=== PATIENT | male | born 1985 | race Caucasian/White ===

== ENCOUNTER 2024-04-21 10:23 | Emergency (ER) | payer SELFPAY ==
--- NOTE | 2024-04-21 10:29 | CTR_ITS ---
PROCEDURE INFORMATION: Exam: CT Abdomen And Pelvis Without Contrast Exam date and time: 04/21/2024 11:01 AM Age: 38 years old Clinical indication: Abdominal pain; Flank; Left; Additional info: Flank pain TECHNIQUE: Imaging protocol: Computed tomography of the abdomen and pelvis without contrast. Radiation optimization: All CT scans at this facility use at least one of these dose optimization techniques: automated exposure control; mA and/or kV adjustment per patient size (includes targeted exams where dose is matched to clinical indication); or iterative reconstruction. COMPARISON: CT Abdomen/Pelvis Renal [id number] 10/16/2016 11:52 PM RADIATION DOSE METRICS: Total DLP (mGy-cm): 637.08 FINDINGS: Liver: Normal. No mass. Gallbladder and biliary ducts: Normal. No calcified stones. No ductal dilation. Pancreas: Normal. No ductal dilation. Spleen: Normal. No splenomegaly. Adrenal glands: Normal. No mass. Kidneys and ureters: Chronic right renal atrophy. Left inferior renal postsurgical change. Mild left pelvocaliectasis with suggested urothelial thickening appears similar to September 2016. Mildly increased size of right renal cyst with minimal dependent layering milk of calcium. Punctate bilateral renal calculi. Otherwise unremarkable. Stomach and bowel: No bowel dilatation to suggest obstruction. Appendix: No evidence of appendicitis. Intraperitoneal space: Unremarkable. No free air. No significant fluid collection. Vasculature: Unremarkable. No abdominal aortic aneurysm. Lymph nodes: Unremarkable. No enlarged lymph nodes. Urinary bladder: Unremarkable as visualized. Reproductive: Unremarkable as visualized. Bones/joints: No acute fracture. Mild degenerative change along the spine and left hip. Soft tissues: Tiny fat containing umbilical hernia. CT/CT abdomen pelvis wo con [id number] IMPRESSION: 1. Mild left renal pelvocaliectasis with suggested urothelial thickening. No obstructive calcified urolith. Consideration for recently passed stone, pyelitis/pyelonephritis, and/or chronically patulous collecting system. 2. Bilateral nonobstructive nephrolithiasis. 3. Chronic right renal atrophy.
[2024-04-21 10:30] VITALS: BP 174/92; PULSE 90; RESP 18; TEMP 36.7; O2SAT 99
[2024-04-21 10:49] LABS: Bilirubin Urine Negative (Negative); Blood Urine 3+ (Negative); Glucose Urine UA Negative (Normal); Ketones Urine Trace (Negative); Leukocyte Esterase Urine Trace (Negative); Nitrate Urine Negative (Negative); Protein Urine 1+ (Negative); Specific Gravity, Urine 1.024 (1.005-1.030); Urine Appearance Cloudy (CLEAR); Urine Color Dark Yellow (Yellow); pH Urine 6.5 (5-7)
[2024-04-21 10:53] LABS: Basophils # 0.1 10^3/uL (0.0-0.1); Basophils % 0.7 %; Eosinophils # 0.1 10^3/uL (0.0-0.8); Eosinophils % 0.7 %; Hematocrit 38.9 % (37-53); Lymphocytes # 1.2 10^3/uL (0.8-4.8); Lymphocytes % 13.9 %; Mean Corpuscular HGB Conc 33.4 g/dL (30-55); Mean Corpuscular Volume 95.8 fl (82-101); Mean Platelet Volume 9.7 fL (7.4-10.4); Monocytes # 0.6 10^3/uL (0.2-0.9); Monocytes % 6.4 %; Neutrophils # 6.92 10^3/uL (1.8-7.7); Nucleated Red Blood Cells % 0 %; Platelet Count 248 10^3/cmm (157-399); Red Blood Count 4.06 10^6/uL (3.85-5.65); Red Cell Distribution Width 13.1 % (12.1-15.1); White Blood Count 8.87 10^3/uL (3.29-11.43)
[2024-04-21 10:54] LABS: Bacteria Urine None Seen /hpf; Hyaline Casts Urine 0.81 /lpf; RBC Urine >100 /hpf (0-2); Squamous Epithelial Cell Urine 0-5 /hpf (0-5)
[2024-04-21 11:00] LABS: Add Urine Culture? Yes
[2024-04-21 11:10] LABS: Alanine Aminotransferase 52 U/L (0-41); Albumin Level 4.5 g/dL (3.5-5.2); Alkaline Phosphatase 112 U/L (40-130); Anion Gap 16.8 (5-19); Aspartate Amino Transferase 39 U/L (0-40); Blood Urea Nitrogen 16 mg/dL (6-20); Calcium 9.4 mg/dL (8.5-10.5); Carbon Dioxide 22 mmol/L (22-29); Chloride 105 mmol/L (98-107); Creatinine Clr Calc Pharmacy 96.4536; Globulin 3.3 g/dL (1.3-4.6); Glomerular Filtration Rate 61.8 mL/min (90-130); Glucose 113 mg/dL (65-115); Osmolality Calculated 292 mOsm/kg (285-295); Potassium 3.8 mmol/L (3.5-5.1); Sodium 140 mmol/L (136-145); Total Bilirubin 0.5 mg/dL (0.15-1.2); Total Protein 7.8 g/dL (6.6-8.7)
--- NOTE | 2024-04-21 11:57 | ED_ITS ---
HPI - Male Genitourinary 2 General: Chief complaint: Urogenital-Male Stated complaint: kidney stone pain, nausea Time Seen by Provider: 04/21/24 11:47 History of Present Illness: 38-year-old man who presents emergency r oom with flank pain. Started about 3 hours ago. Left flank pain going into his left groin. Some nausea but no vomiting. No fever. No altered mental status. He reports history of kidney stones. Related Data Previous Rx's Medication Instructions Recorded cefdinir 300 mg capsule 300 mg PO BID 5 days #10 caps 04/21/24 hydrocodone 5 mg-acetaminophen 325 1 tab PO Q8H PRN pain #8 tabs 04/21/24 mg tablet ondansetron 8 mg disintegrating 8 mg PO Q6H #14 tabs 04/21/24 tablet polyethylene glycol 3350 17 17 g PO DAILY #510 grams 04/21/24 gram/dose oral powder (Miralax) Allergies Allergy/AdvReac Type Severity Reaction Status Date / Time ketorolac [From Toradol] Allergy Unknown Verified 04/21/24 10:33 morphine Allergy ALGY-Hives Verified 04/21/24 10:33 Penicillins Allergy Unknown Verified 04/21/24 10:33 Sulfa (Sulfonamide Allergy ALGY-Hives Verified 04/21/24 10:33 Antibiotics) Review of Systems 2 Narrative: Constitutional symptoms: Negative except as documented in HPI. Skin symptoms: Negative except as documented in HPI. Eye symptoms: Negative except as documented in HPI. ENMT symptoms: Negative except as documented in HPI. Respiratory symptoms: Negative except as documented in HPI. Cardiovascular symptoms: Negative except as documented in HPI. Gastrointestinal symptoms: Negative except as documented in HPI. Genitourinary symptoms: Negative except as documented in HPI. Musculoskeletal symptoms: Negative except as documented in HPI. Neurologic symptoms: Negative except as documented in HPI. Psychiatric symptoms: Negative except as documented in HPI. Endocrine symptoms: Negative except as documented in HPI. Physical Exam 2 Narrative: EXAM NARRATIVE: General: Alert, no acute distress. Skin: Warm, dry. Head: Normocephalic, atraumatic. Neck: Supple, trachea midline. Eye: Extraocular movements are intact. Ears, nose, mouth and throat: Dry oral mucosa Cardiovascular: Regular, Normal peripheral perfusion. Respiratory: Lungs are clear to auscultation, respirations are non-labored, breath sounds are equal, Symmetrical chest wall expansion. Gastrointestinal: Soft, Nontender, Non distended Musculoskeletal: Normal ROM, no deformity. Neurological: Alert and oriented, No focal neurological deficit observed. Psychiatric: Cooperative, appropriate mood & affect. Course 2 Vital Signs: Vital signs: Vital Signs Temperature 98.0 F 04/21/24 10:30 Pulse Rate 90 04/21/24 10:30 Respiratory Rate 18 04/21/24 10:30 Blood Pressure 174/92 04/21/24 10:30 Pulse Oximetry 99 04/21/24 10:30 Oxygen Delivery Me thod Room Air 04/21/24 10:30 MDM - Male Medical Decision Making Medical decision making: Differential diagnosis including but not limited to and based on the above HPI, review of systems and physical exam: Ureterolithiasis. Urinary tract infection. Appendicitis. Cholecystis. Musculoskeletal / back pain. Pyelonephritis Orders placed to evaluate differential diagnosis based on the above differential, HPI and physical exam Lab Review: Laboratory results were reviewed and interpreted by myself the emergency room physician. No leukocytosis. No anemia. Mild elevation in BUN and creatinine at 16 and 1.3. I have no comparisons as to what his baseline is. Oniel hematuria. Trace leukocyte esterase and 6-10 whites ongoing to treat him as if he has an infection. CT of the abdomen pelvis without contrast: Mild left renal pelvic Ondina ectasis with suggesting your radial oral thickening. No obstructive stone. Likely recently passed stone. Bilateral nonobstructive kidney stones. Chronic right renal atrophy. This was reviewed and interpreted by myself the emergency room physician. I also reviewed the radiology report. I reviewed the patient's medical record. Assessment and plan: Passed kidney stone. Nonobstructive kidney stones. Urinary tract infection ?Dilaudid, Zofran, fluids and IV Rocephin. - Discharged home - Discussed findings and plan with patient. Answered any questions. - All laboratory values were reviewed and interpreted personally by myself, the ER physician - All imaging was reviewed and interpreted personally by myself, the ER physician. - Evaluation and treatment of this problem were appropriate in the emergency setting Lab Data 04/21/24 10:48 04/21/24 10:48 Radiology Impressions Abdomen/Pelvis CT 04/21/24 10:29 IMPRESSION: 1. Mild left renal pelvocaliectasis with suggested urothelial thickening. No obstructive calcified urolith. Consideration for recently passed stone, pyelitis/pyelonephritis, and/or chronically patulous collecting system. 2. Bilateral nonobstructive nephrolithiasis. 3. Chronic right renal atrophy. Laboratory Results WBC 8.87 10^3/uL (3.29-11.43) 04/21/24 10:48 RBC 4.06 10^6/uL (3.85-5.65) 04/21/24 10:48 Hgb 13.00 g/dL (11.27-16.99) 04/21/24 10:48 Hct 38.9 % (37-53) 04/21/24 10:48 MCV 95.8 fl (82-101) 04/21/24 10:48 MCH 32.0 pg (27-33) 04/21/24 10:48 MCHC 33.4 g/dL (30-55) 04/21/24 10:48 RDW 13.1 % (12.1-15.1) 04/21/24 10:48 Plt Count 248 10^3/cmm (157-399) 04/21/24 10:48 MPV 9.7 fL (7.4-10.4) 04/21/24 10:48 Neut % (Auto) 78.0 % 04/21/24 10:48 Lymph % (Auto) 13.9 % 04/21/24 10:48 [place] % (Auto) 6.4 % 04/21/24 10:48 Eos % (Auto) 0.7 % 04/21/24 10:48 Baso % (Auto) 0.7 % 04/21/24 10:48 Neut # (Auto) 6.92 10^3/uL (1.8-7.7) 04/21/24 10:48 Lymph # (Auto) 1.2 10^3/uL (0.8-4.8) 04/21/24 10:48 Norman # (Auto) 0.6 10^3/uL (0.2-0.9) 04/21/24 10:48 Eos # (Auto) 0.1 10^3/uL (0.0-0.8) 04/21/24 10:48 Baso # (Auto) 0.1 10^3/uL (0.0-0.1) 04/21/24 10:48 Nucleated RBC % (auto) 0 % 04/21/24 10:48 Nucleated RBCs # 0.0 /100WBC 04/21/24 10:48 Sodium 140 mmol/L (136-145) 04/21/24 10:48 Potassium 3.8 mmol/L (3.5-5.1) 04/21/24 10:48 Chloride 105 mmol/L (98-107) 04/21/24 10:48 Carbon Dioxide 22 mmol/L (22-29) 04/21/24 10:48 Anion Gap 16.8 (5-19) 04/21/24 10:48 BUN 16 mg/dL (6-20) 04/21/24 10:48 Creatinine 1.3 mg/dL (0.7-1.2) H 04/21/24 10:48 GFR Calculation 61.8 mL/min (90-130) L 04/21/24 10:48 Glucose 113 mg/dL (65-115) 04/21/24 10:48 Calculated Osmolality 292 mOsm/kg (285-295) 04/21/24 10:48 Calcium 9.4 mg/dL (8.5-10.5) 04/21/24 10:48 Total Bilirubin 0.5 mg/dL (0.15-1.2) 04/21/24 10:48 AST 39 U/L (0-40) 04/21/24 10:48 ALT 52 U/L (0-41) H 04/21/24 10:48 Alkaline Phosphatase 112 U/L (40-130) 04/21/24 10:48 C-Reactive Protein 3.0 mg/L (0.0-4.9) 04/21/24 10:48 Total Protein 7.8 g/dL (6.6-8.7) 04/21/24 10:48 Albumin 4.5 g/dL (3.5-5.2) 04/21/24 10:48 Globulin 3.3 g/dL (1.3-4.6) 04/21/24 10:48 Urine Color Dark yellow (Yellow) A 04/21/24 10:35 Urine Appearance Cloudy (CLEAR) A 04/21/24 10:35 Urine pH 6.5 (5-7) 04/21/24 10:35 Ur Specific [place] 1.024 (1.005-1.030) 04/21/24 10:35 Urine Protein 1+ (Negative) A 04/21/24 10:35 Urine Glucose (UA) Negative (Normal) 04/21/24 10:35 Urine Ketones Trace (Negative) 04/21/24 10:35 Urine Blood 3+ (Negative) A 04/21/24 10:35 Urine Nitrate Negative (Negative) 04/21/24 10:35 Urine Bilirubin Negative (Negative) 04/21/24 10:35 Urine Urobilinogen 1.0 mg/dL (Negative) 04/21/24 10:35 Ur Leukocyte Esterase Trace (Negative) A 04/21/24 10:35 Urine RBC >100 /hpf (0-2) H 04/21/24 10:35 Urine WBC 6-10 /hpf (0-5) 04/21/24 10:35 Ur Squamous Epith Cells 0-5 /hpf (0-5) 04/21/24 10:35 Amorphous Sediment Not Reportable 04/21/24 10:35 Urine Bacteria None seen /hpf (NONE) 04/21/24 10:35 Hyaline Casts 0.81 /lpf 04/21/24 10:35 All radiology interpretation(s) finalized by discharge Discharge Plan Discharge Patient Disposition: Home Clinical Impression: Ureterolithiasis, Urinary tract infection Condition: Stable Prescriptions: New hydrocodone-acetaminophen 5-325 mg tablet 1 tab PO Q8H PRN (Reason: pain) Qty: 8 0RF Rx Instructions: Take 1/2 to 1 tab every 8 hours as needed for pain ondansetron 8 mg tablet,disintegrating 8 mg PO Q6H Qty: 14 0RF Rx Instructions: Take 1/2-1 tab every 6 hours as needed for nausea and vomiting Miralax 17 gram/dose powder 17 g PO DAILY Qty: 510 0RF Rx Instructions: Take 1 scoop daily while taking pain medications. cefdinir 300 mg capsule 300 mg PO BID 5 Days Qty: 10 0RF Discharge Orders: Discharge ED (Routine); Ordered 04/21/24 Ordered By: Nadiya Bass Discharge Diet: Usual diet Discharge Activity: Resume usual activity Patient Instructions: Kidney Stones (ED) Activity Restrictions/Additional Instructions: Call for appointment with urology. If fever (temp >100.4) develops return to the emergency room immediately, as this is an emergency. Take nausea medication prior to taking pain medications. Thank you for choosing [facility] for your healthcare needs today. Please realize this is an emergency room and that we are providing you with a medical screening exam and this may not be complete and all inclusive of all the testing and or work up that you may need to determine your ailment or severity of your illness. You have been screened and evaluated and felt safe for discharge. Health conditions do change or evolve sometimes and as such it is important that you follow up with your Primary Doctor to be re checked, 3-5 days is a general good time frame for follow up. You are always welcome to return to the ED for re assessment if your symptoms are worsening or you have new concerns Coding Level of Care Code ED Wine Merchant for Francisco Romero
[2024-04-21 12:15] VITALS: O2SAT 100
[2024-04-21] MEDS: ondansetron 2 mg/ML SDV 2 mL 4 MG IVP (12:15)
[2024-04-21] MEDS: sodium chloride 0.9% 1,000 ML 999 ML IV (12:15)
[2024-04-21] MEDS: cefTRIAXone 1,000 mg SDV 1000 MG IVP (12:15)
[2024-04-21] MEDS: HYDROmorphone 1 mg/mL INJ 1 mL IVP (12:15)
[2024-04-21 12:32] VITALS: BP 165/114; PULSE 62; RESP 16; O2SAT 100
[2024-04-21] MEDS: HYDROcodone-acetaminophen 5-325 mg Tablet 1 TAB PO (12:52)
[2024-04-21 13:00] VITALS: BP 177/96; PULSE 66; RESP 16; O2SAT 98
== END 2024-04-21 13:17 | disposition home or self-care (01) ==
PROVIDERS: Emergency Provider Emergency Medicine
DX: N39.0 Urinary tract infection, site not specified (principal); N20.1 Calculus of ureter
CPT/HCPCS: 36415; 74176; 80053; 81001; 85025; 86140; 87086; 96361; 96374; 96375; 99285; J0696; J1170; J2405; J7030

== ENCOUNTER 2024-04-23 12:43 | Emergency (ER) | payer SELFPAY ==
[2024-04-23 12:55] VITALS: BP 186/102; PULSE 97; RESP 18; TEMP 36.7; O2SAT 100; BMI 28.2
[2024-04-23 14:06] LABS: Charge for UA Resulting for Rev
[2024-04-23 14:09] LABS: Bilirubin Urine Negative (Negative); Blood Urine 3+ (Negative); Glucose Urine UA Negative (Normal); Ketones Urine Negative (Negative); Leukocyte Esterase Urine Trace (Negative); Nitrate Urine Negative (Negative); Protein Urine 1+ (Negative); Specific Gravity, Urine 1.025 (1.005-1.030); Urine Appearance Cloudy (CLEAR); pH Urine 5.5 (5-7)
[2024-04-23 14:15] LABS: Basophils # 0.1 10^3/uL (0.0-0.1); Basophils % 0.9 %; Eosinophils # 0.1 10^3/uL (0.0-0.8); Hematocrit 35.3 % (37-53); Lymphocytes # 1.4 10^3/uL (0.8-4.8); Lymphocytes % 20.5 %; Mean Corpuscular HGB Conc 32.9 g/dL (30-55); Mean Corpuscular Hemoglobin 32.3 pg (27-33); Mean Corpuscular Volume 98.3 fl (82-101); Monocytes # 0.5 10^3/uL (0.2-0.9); Monocytes % 6.6 %; Neutrophils # 4.84 10^3/uL (1.8-7.7); Neutrophils % 69.7 %; Nucleated Red Blood Cells % 0 %; Platelet Count 222 10^3/cmm (157-399); Red Blood Count 3.59 10^6/uL (3.85-5.65); Red Cell Distribution Width 12.8 % (12.1-15.1); White Blood Count 6.94 10^3/uL (3.29-11.43)
[2024-04-23 14:43] LABS: UA Manual Slide Review YES; UA Slide Review UA Slide Review Perf; Urine Color Orange (Yellow)
[2024-04-23 14:44] LABS: Bacteria Urine 1+ /hpf; Calcium Oxalate Crystals Urine 0-4 /hpf; Fine Granular Casts Urine 0-4 /lpf; RBC Urine >100 /hpf (0-2); Squamous Epithelial Cell Urine 0-4 /hpf (0-5)
[2024-04-23 14:45] LABS: Alanine Aminotransferase 39 U/L (0-41); Albumin Level 4.1 g/dL (3.5-5.2); Alkaline Phosphatase 106 U/L (40-130); Blood Urea Nitrogen 16 mg/dL (6-20); Calcium 9.1 mg/dL (8.5-10.5); Carbon Dioxide 25 mmol/L (22-29); Chloride 106 mmol/L (98-107); Creatinine Clr Calc Pharmacy 114.9252; Globulin 2.5 g/dL (1.3-4.6); Glomerular Filtration Rate 74.9 mL/min (90-130); Glucose 86 mg/dL (65-115); Osmolality Calculated 292 mOsm/kg (285-295); Sodium 141 mmol/L (136-145); Total Bilirubin 0.2 mg/dL (0.15-1.2); Total Protein 6.6 g/dL (6.6-8.7)
[2024-04-23 14:46] LABS: Anion Gap 14.2 (5-19); Aspartate Amino Transferase 33 U/L (0-40); Potassium 4.2 mmol/L (3.5-5.1)
[2024-04-23 14:58] VITALS: BP 162/100; PULSE 80; O2SAT 93
--- NOTE | 2024-04-23 15:12 | ED_ITS ---
HPI - Male Genitourinary 2 General: Chief complaint: Abdominal Pain Stated complaint: abdominal pain/ nausea Time Seen by Provider: 04/23/24 14:51 Source: patient Mode of arrival: ambulatory Limitations: no limitations History of Present Illness: Patient is a nice 38-year-old male with an extensive urology history including multiple kidney and ureter stones requiring multiple surgeries, nephrostomy tubes, left partial nephrectomy, etc. His urologist is back home in [place], [place]. 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 Reports two days ago began having severe pain and was seen here in our emergency department. CT scan did not show any obstructive uropathy-findings consistent with possibly recently passed stone. Gross hematuria noted at that time. Patient states he was doing well following his discharge until few hours prior to arrival today when he began having severe pain again. Patient states he will be traveling back home on and plans to follow-up with his urologist. Onset (ago): hour(s) Duration: constant Location: left flank and abdomen Severity: severe Quality: sharp Relieving factors: none Exacerbating factors: none Associated symptoms: Reports nausea; Deny dysuria or vomiting Related Data Previous Rx's Medication Instructions Recorded cefdinir 300 mg capsule 300 mg PO BID 5 days #10 caps 04/21/24 ondansetron 8 mg disintegrating 8 mg PO Q6H #14 tabs 04/21/24 tablet polyethylene glycol 3350 17 17 g PO DAILY #510 grams 04/21/24 gram/dose oral powder (Miralax) hydrocodone 5 mg-acetaminophen 325 1 tab PO Q8H PRN pain #10 tabs 04/23/24 mg tablet Allergies Allergy/AdvReac Type Severity Reaction Status Date / Time ketorolac [From Toradol] Allergy Unknown Verified 04/23/24 12:58 morphine Allergy ALGY-Hives Verified 04/23/24 12:58 Penicillins Allergy Unknown Verified 04/23/24 12:58 Sulfa (Sulfonamide Allergy ALGY-Hives Verified 04/23/24 12:58 Antibiotics) Review of Systems 2 Const: Denies: fever(s), chills, body aches, fatigue or malaise Card: Denies: chest pain Resp: Denies: dyspnea GI: Reports: abdominal pain and nausea; Denies: vomiting or diarrhea : Reports: flank pain, urinary urgency and urinary hesitancy; Denies: difficulty urinating, dysuria or urinary frequency Musc: Denies: neck pain, extremity pain, extremity swelling, joint pain or joint swelling Skin/Breast: Denies: rash Neuro: Denies: headache(s), numbness in extremities, weakness in extremities, sensory changes or dizziness Physical Exam 2 Const: COMMON NORMALS: average body habitus, patient oriented x3, no limitations, healthy appearing, alert and well nourished GENERAL APPEARANCE: cooperative and in distress (appears uncomfortable secondary to pain) O RIENTATION/CONSCIOUSNESS: Yes awake, Yes oriented to person, Yes oriented to place and Yes oriented to time Resp: COMMON NORMALS: normal respiratory effort and clear to auscultation bilaterally AUSCULTATION: clear to auscultation bilaterally Cardio: COMMON NORMALS: regular rate and regular rhythm RATE: regular rate RHYTHM: regular rhythm GI: COMMON NORMALS: Normal to inspection, nondistended, normoactive bowel sounds present, Soft to palpation, No hepatosplenomegaly present and no masses INSPECTION: Yes normal to inspection AUSCULTATION: Yes normoactive bowel sounds PALPATION: Yes Soft to palpation, Yes Tenderness to palpation present (GI) (L lateral abdomen, LLQ), No Guarding due to palpation present (GI), No Rigid due to palpation and Yes No hepatosplenomegaly present : COMMON NORMALS: Yes no CVA tenderness BLADDER/KIDNEY EXAM: Yes no CVA tenderness Back/Pelvis: COMMON NORMALS: no CVA tenderness and thoracic and lumbar spine normal to inspection Extremity: GENERAL: Yes normal exam except as noted Neuro: COMMON NORMALS: patient oriented x3, moves all extremities, no focal motor deficits, no sensory deficits noted and gait normal S ENSORIUM/ORIENTATION: Yes alert, Yes oriented to person, Yes oriented to place and Yes oriented to time Skin: COMMON NORMALS: no rashes or lesions noted GENERAL SKIN EXAM: no rashes or lesions noted Course 2 Vital Signs: Vital signs: Vital Signs Temperature 98.0 F 04/23/24 12:55 Pulse Rate 78 04/23/24 16:00 Respiratory Rate 19 H 04/23/24 16:04 Blood Pressure 168/67 04/23/24 16:00 Pulse Oximetry 97 04/23/24 16:04 Oxygen Delivery Me thod Room Air 04/23/24 16:00 MDM - Male Medical Decision Making Pain was adequately controlled here. Vital signs are stable. He has a normal white count. Creatinine that was slightly elevated on last visit is now normal. UA showing gross hematuria. He was placed on cefdinir at last visit. CT scan showing no significant changes from previous. Will continue plan for patient to follow-up with his urologist when he returns home on . Medical Records I reviewed the patient's medical records. Lab Data I reviewed the patient's lab results. 04/23/24 14:09 04/23/24 14:09 Radiology Impressions Abdomen/Pelvis CT 04/23/24 15:23 IMPRESSION: 1. Mild LEFT pelvocaliectasis with mild uroepithelial irregularity of the distal LEFT ureter. No stones are identified. Correlate for possible urinary tract infection or recently passed stone. Very similar to the study of 04/21/2024. 2. Chronic cortical thinning and atrophy RIGHT kidney with complex cysts. The cyst contains layering calcification. 3. Postsurgical changes lower pole LEFT kidney. Laboratory Results WBC 6.94 10^3/uL (3.29-11.43) 04/23/24 14:09 RBC 3.59 10^6/uL (3.85-5.65) L 04/23/24 14:09 Hgb 11.60 g/dL (11.27-16.99) 04/23/24 14:09 Hct 35.3 % (37-53) L 04/23/24 14:09 MCV 98.3 fl (82-101) 04/23/24 14:09 MCH 32.3 pg (27-33) 04/23/24 14:09 MCHC 32.9 g/dL (30-55) 04/23/24 14:09 RDW 12.8 % (12.1-15.1) 04/23/24 14:09 Plt Count 222 10^3/cmm (157-399) 04/23/24 14:09 MPV 10.0 fL (7.4-10.4) 04/23/24 14:09 Neut % (Auto) 69.7 % 04/23/24 14:09 Lymph % (Auto) 20.5 % 04/23/24 14:09 [place] % (Auto) 6.6 % 04/23/24 14:09 Eos % (Auto) 2.0 % 04/23/24 14:09 Baso % (Auto) 0.9 % 04/23/24 14:09 Neut # (Auto) 4.84 10^3/uL (1.8-7.7) 04/23/24 14:09 Lymph # (Auto) 1.4 10^3/uL (0.8-4.8) 04/23/24 14:09 [place]yman # (Auto) 0.5 10^3/uL (0.2-0.9) 04/23/24 14:09 Eos # (Auto) 0.1 10^3/uL (0.0-0.8) 04/23/24 14:09 Baso # (Auto) 0.1 10^3/uL (0.0-0.1) 04/23/24 14:09 Nucleated RBC % (auto) 0 % 04/23/24 14:09 Nucleated RBCs # 0.0 /100WBC 04/23/24 14:09 Sodium 141 mmol/L (136-145) 04/23/24 14:09 Potassium 4.2 mmol/L (3.5-5.1) 04/23/24 14:09 Chloride 106 mmol/L (98-107) 04/23/24 14:09 Carbon Dioxide 25 mmol/L (22-29) 04/23/24 14:09 Anion Gap 14.2 (5-19) 04/23/24 14:09 BUN 16 mg/dL (6-20) 04/23/24 14:09 Creatinine 1.1 mg/dL (0.7-1.2) 04/23/24 14:09 GFR Calculation 74.9 mL/min (90-130) L 04/23/24 14:09 Glucose 86 mg/dL (65-115) 04/23/24 14:09 Calculated Osmolality 292 mOsm/kg (285-295) 04/23/24 14:09 Calcium 9.1 mg/dL (8.5-10.5) 04/23/24 14:09 Total Bilirubin 0.2 mg/dL (0.15-1.2) 04/23/24 14:09 AST 33 U/L (0-40) 04/23/24 14:09 ALT 39 U/L (0-41) 04/23/24 14:09 Alkaline Phosphatase 106 U/L (40-130) 04/23/24 14:09 Total Protein 6.6 g/dL (6.6-8.7) 04/23/24 14:09 Albumin 4.1 g/dL (3.5-5.2) 04/23/24 14:09 Globulin 2.5 g/dL (1.3-4.6) 04/23/24 14:09 Urine Color [place] (Yellow) A 04/23/24 13:53 Urine Appearance Cloudy (CLEAR) A 04/23/24 13:53 Urine pH 5.5 (5-7) 04/23/24 13:53 Ur Specific [place] 1.025 (1.005-1.030) 04/23/24 13:53 Urine Protein 1+ (Negative) A 04/23/24 13:53 Urine Glucose (UA) Negative (Normal) 04/23/24 13:53 Urine Ketones Negative (Negative) 04/23/24 13:53 Urine Blood 3+ (Negative) A 04/23/24 13:53 Urine Nitrate Negative (Negative) 04/23/24 13:53 Urine Bilirubin Negative (Negative) 04/23/24 13:53 Urine Urobilinogen 1.0 mg/dL (Negative) 04/23/24 13:53 Ur Leukocyte Esterase Trace (Negative) A 04/23/24 13:53 Urine RBC >100 /hpf (0-2) H 04/23/24 13:53 Urine WBC 10-15 /hpf (0-5) H 04/23/24 13:53 Ur Squamous Epith Cells 0-4 /hpf (0-5) H 04/23/24 13:53 Calcium Oxalate Crystal 0-4 /hpf H 04/23/24 13:53 Amorphous Sediment Not Reportable 04/23/24 13:53 Urine Bacteria 1+ /hpf (NONE) H 04/23/24 13:53 Fine Granular Casts 0-4 /lpf H 04/23/24 13:53 All radiology interpretation(s) finalized by discharge Discharge Plan Discharge Patient Disposition: Home Clinical Impression: Renal colic on left side Condition: Stable Prescriptions: Continued hydrocodone-acetaminophen 5-325 mg tablet 1 tab PO Q8H PRN (Reason: pain) Qty: 10 0RF No Action ondansetron 8 mg tablet,disintegrating 8 mg PO Q6H Qty: 14 0RF Rx Instructions: Take 1/2-1 tab every 6 hours as needed for nausea and vomiting Miralax 17 gram/dose powder 17 g PO DAILY Qty: 510 0RF Rx Instructions: Take 1 scoop daily while taking pain medications. cefdinir 300 mg capsule 300 mg PO BID 5 Days Qty: 10 0RF Discharge Orders: Discharge ED (Routine); Ordered 04/23/24 Ordered By: Aisha Fletcher Patient Instructions: Renal Colic (ED), Opioid Safety, Pain Management Activity Restrictions/Additional Instructions: As we discussed I would like you to follow-up with urologist as soon as possible when you return home on . You may return to the emergency department for worsening abdominal or flank pain, repetitive episodes of vomiting, fevers, generally feeling worse or unwell, or any other concerns you may have. I hope you begin to feel better soon. Coding Level of Care Code ED Manager Title for Francisco Romero
[2024-04-23] MEDS: ondansetron 2 mg/ML SDV 2 mL 4 MG IVP (15:14)
[2024-04-23 15:17] VITALS: RESP 18; O2SAT 3
[2024-04-23] MEDS: HYDROmorphone 1 mg/mL INJ 1 mL 0.5 MG IVP (15:17)
[2024-04-23] MEDS: sodium chloride 0.9% 1,000 ML 999 ML IV (15:21)
--- NOTE | 2024-04-23 15:23 | CT_ITS ---
WS: [id number] CT ABDOMEN AND PELVIS NONCONTRAST HISTORY: L flank/abdominal pain TECHNIQUE: Imaging performed through the abdomen and pelvis. Coronal and sagittal reformats are submi tted. All CT scans at [facility] use at least one of these dose optimization techniques: auto mated exposure control; mA and/or kV adjustment per patient size (includes targeted exams where dose is matched to clinical indication); or iterative reconstruction. DLP: 727.83 mGy.cm COMPARISON: 10/16/2016, 04/21/2024 Lower thorax: There is subtle changes of groundglass attenuation at the LEFT lung base. Heart is norm al size. Small hiatal hernia. Liver: Normal size liver. No mass or bile duct dilatation. Gallbladder: Normal gallbladder. No pericholecystic fluid or cholelithiasis. No gallbladder wall thic kening. Pancreas: Normal size and attenuation. Normal pancreatic duct. No pancreatitis or mass. Spleen: Normal. Adrenal glands: Normal. No mass. Right kidney: Abnormal RIGHT kidney. There is marked diffuse cortical thinning with mild atrophy. Mil dly prominent renal pelvis. No stones identified in the ureter. There are nonobstructing calcificatio ns in the renal pelvis which are very tiny. Exophytic low-attenuation mass from the mid lateral kidne y measures 3.6 x 2.5 cm. This mass was previously described in 2017 but is slightly greater in size. There are layering calcifications within this mass which is probably a complex cyst. Left kidney: Mildly enlarged kidney. There is mild dilatation of the renal pelvis and calyces. Nonobs tructing calcifications are identified. Postoperative sutures are noted in. In the past patient had a staghorn calculus present. The LEFT ureter is very mildly prominent. Distally the ureter becomes irr egular but there is no obstruction or stone identified. Aorta: Normal abdominal aorta, no aneurysm or atherosclerosis. No free fluid, intraperitoneal air or significant lymphadenopathy. GI tract: Normal noncontrast imaging of the stomach, small bowel and colon. No obstruction or wall th ickening. Normal appendix. Abdominal wall: Small umbilical hernia contains fat only. Pelvis: No free fluid. No ascites. Normal urinary bladder. Osseous structures: Unremarkable. CT/CT kidney stone [id number] IMPRESSION: 1. Mild LEFT pelvocaliectasis with mild uroepithelial irregularity of the dist al LEFT ureter. No stones are identified. Correlate for possible urinary tract infection or recently passed stone. Very similar to the study of 04/21/2024. 2. Chronic cortical thinning and atrophy RIGHT kidney with complex cysts. The cyst contains layering calcification. 3. Postsurgical changes lower pole LEFT kidney.
[2024-04-23 16:00] VITALS: BP 168/67; PULSE 78; RESP 20; O2SAT 97
[2024-04-23 16:04] VITALS: RESP 19; O2SAT 97
[2024-04-23] MEDS: HYDROmorphone 1 mg/mL INJ 1 mL IVP (16:04)
[2024-04-23 16:30] VITALS: BP 168/67; PULSE 71; O2SAT 96
== END 2024-04-23 16:32 | disposition home or self-care (01) ==
PROVIDERS: Emergency Provider Physician Assistant
DX: N23 Unspecified renal colic (principal)
CPT/HCPCS: 36415; 74176; 80053; 81003; 81015; 85025; 96361; 96374; 96375; 96376; 99285; J1170; J2405; J7030

== ENCOUNTER 2024-04-24 17:31 | Emergency (ER) | payer SELFPAY ==
[2024-04-24 17:44] VITALS: BP 171/120; PULSE 85; RESP 16; TEMP 37.1; O2SAT 98
--- NOTE | 2024-04-24 17:56 | ED_ITS ---
HPI - Male Genitourinary 2 General: Chief complaint: Urogenital-Male Stated complaint: kidney pain, N/V Time Seen by Provider: 04/24/24 17:31 Source: patient Mode of arrival: ambulatory Limitations: no limitations History of Present Illness: Patient is a 38-year-old male who is presenting to the emergency department for the second time in 48 hours for left flank pain. He has had imaging done both days, no stone has been identified however there are some chronic urological changes that would warrant him following up with urology, of which she sees [address] [facility]. He is set to go home on , however arrives today stating that the nausea and vomiting has gotten so severe and he cannot keep down any fluids or his nausea medicine. He states the pain is about the same, that his left flank is bothering him more than anything. No fever, blood in his vomit, or other new symptoms. MD Complaint: other (Left flank pain) Onset (ago): day(s) Duration: constant Location: left flank Radiation: left inguinal region and abdomen Severity: severe Associated symptoms: Reports hematuria, nausea and vomiting; Deny dysuria Related Data Previous Rx's Medication Instructions Recorded cefdinir 300 mg capsule 300 mg PO BID 5 days #10 caps 04/21/24 ondansetron 8 mg disintegrating 8 mg PO Q6H #14 tabs 04/21/24 tablet polyethylene glycol 3350 17 17 g PO DAILY #510 grams 04/21/24 gram/dose oral powder (Miralax) hydrocodone 5 mg-acetaminophen 325 1 tab PO Q8H PRN pain #10 tabs 04/23/24 mg tablet Allergies Allergy/AdvReac Type Severity Reaction Status Date / Time ketorolac [From Toradol] Allergy Unknown Verified 04/24/24 17:48 morphine Allergy ALGY-Hives Verified 04/24/24 17:48 NSAIDS (Non-Steroidal Allergy Unknown Verified 04/24/24 17:48 Anti-Inflamma Penicillins Allergy Unknown Verified 04/24/24 17:48 Sulfa (Sulfonamide Allergy ALGY-Hives Verified 04/24/24 17:48 Antibiotics) Review of Systems 2 General: Reports: 10 or more systems reviewed and unremarkable except in HPI and below Const: Denies: fever(s), chills, change in appetite, change in weight or diaphoresis ENMT: Denies: throat pain or hoarseness Card: Denies: chest pain, palpitations or lightheadedness Resp: Denies: dyspnea, productive cough or wheezing GI: Reports: abdominal pain, nausea and vomiting; Denies: diarrhea, constipation, bloating, change in stool character or hematochezia : Reports: flank pain and hematuria; Denies: difficulty urinating, dysuria, urinary frequency or urinary urgency Musc: Denies: neck pain or back pain Skin/Breast: Denies: rash or new lesions Neuro: Denies: headache(s) or dizziness Physical Exam 2 Const: COMMON NORMALS: average body habitus, patient oriented x3, no limitations, healthy appearing, alert and well nourished GENERAL APPEARANCE: cooperative ORIENTATION/CONSCIOUSNESS: Yes awake OTHER: Appears uncomfortable HENMT: COMMON NORMALS: normocephalic, atraumatic, hearing grossly normal bilaterally, external ears normal, Normal external nose present, Normal nasal mucous membranes and turbinates present and moist oral mucous membranes HEAD & SCALP: normocephalic and atraumatic NOSE: Normal external nose present and Normal nasal mucous membranes and turbinates present EXTERNAL EAR: Yes external ears normal Eye: COMMON NORMALS: Equal, round and reactive pupils present, EOMs intact bilaterally, conjunctivae normal and normal visual tyler by confrontation C ONJUNCTIVA: Yes conjunctivae normal PUPIL: Yes Equal, round and reactive pupils present Neck/C-Spine: COMMON NORMALS: full ROM, supple, no meningeal signs and no JVD Resp: COMMON NORMALS: normal respiratory effort, No retractions, No use of accessory muscles and clear to auscultation bilaterally AUSCULTATION: clear to auscultation bilaterally, no crackles, no rales, no rhonchi and no wheezes Cardio: COMMON NORMALS: no JVD, regular rate, regular rhythm, S1 normal heart sound present, S2 normal heart sound present, No gallops present (Cardio), No clicks present (Cardio), No murmurs present (Cardio), No rub (Cardio) and Peripheral pulses 2+ throughout RATE: regular rate RHYTHM: regular rhythm HEART SOUNDS: S1 normal heart sound present and S2 normal heart sound present PERIPHERAL PULSES: Peripheral pulses 2+ throughout GI: COMMON NORMALS: Normal to inspection, nondistended, normoactive bowel sounds present, Soft to palpation, non-tender, No hepatosplenomegaly present and no masses AUSCULTATION: Yes normoactive bowel sounds PALPATION: Yes Soft to palpation, No Guarding due to palpation present (GI), No Rigid due to palpation and Yes No hepatosplenomegaly present RECTAL EXAM: Yes deferred : BLADDER/KIDNEY EXAM: Yes CVA tenderness on the left Back/Pelvis: GENERAL BACK: Yes CVA tenderness Extremity: COMMON NORMALS: normal to inspection and full ROM Neuro: COMMON NORMALS: patient oriented x3, moves all extremities, no focal motor deficits and no sensory deficits noted SENSORIUM/ORIENTATION: Yes alert MENINGEAL SIGNS: Yes no meningeal signs Psych: COMMON NORMALS: mental status grossly normal, cooperative and speech normal SPEECH: Yes normal speech Skin: COMMON NORMALS: no rashes or lesions noted GENERAL SKIN EXAM: no rashes or lesions noted Course 2 Vital Signs: Vital signs: Vital Signs Temperature 98.8 F 04/24/24 17:44 Pulse Rate 90 04/24/24 20:08 Respiratory Rate 18 04/24/24 19:53 Blood Pressure 155/111 04/24/24 20:08 Pulse Oximetry 94 04/24/24 20:08 Oxygen Delivery Me thod Room Air 04/24/24 17:44 MDM - Male Medical Decision Making Patient seen for the third time and has many days here for left flank pain. Had CT imaging both days did not reveal any stone but did reveal some chronic urological findings. He has urology follow-up scheduled for later this week back in [facility] where he is from, states that he comes in today again because he cannot control his nausea and vomiting. He was started on fluids through an IV as well as nausea medication and pain medication. His labs all were normal when compared to prior, no reason to scan for third time as there is no reported increase in pain. Will discharge home as he is feeling better, and will continue follow-up with urology later this week. Lab Data 04/24/24 18:13 04/24/24 18:13 Laboratory Results WBC 7.46 10^3/uL (3.29-11.43) 04/24/24 18:13 RBC 3.67 10^6/uL (3.85-5.65) L 04/24/24 18:13 Hgb 11.80 g/dL (11.27-16.99) 04/24/24 18:13 Hct 35.5 % (37-53) L 04/24/24 18:13 MCV 96.7 fl (82-101) 04/24/24 18:13 MCH 32.2 pg (27-33) 04/24/24 18:13 MCHC 33.2 g/dL (30-55) 04/24/24 18:13 RDW 13.0 % (12.1-15.1) 04/24/24 18:13 Plt Count 235 10^3/cmm (157-399) 04/24/24 18:13 MPV 9.6 fL (7.4-10.4) 04/24/24 18:13 Neut % (Auto) 66.8 % 04/24/24 18:13 Lymph % (Auto) 22.1 % 04/24/24 18:13 [place] % (Auto) 7.2 % 04/24/24 18:13 Eos % (Auto) 2.4 % 04/24/24 18:13 Baso % (Auto) 1.2 % 04/24/24 18:13 Neut # (Auto) 4.98 10^3/uL (1.8-7.7) 04/24/24 18:13 Lymph # (Auto) 1.7 10^3/uL (0.8-4.8) 04/24/24 18:13 [place] # (Auto) 0.5 10^3/uL (0.2-0.9) 04/24/24 18:13 Eos # (Auto) 0.2 10^3/uL (0.0-0.8) 04/24/24 18:13 Baso # (Auto) 0.1 10^3/uL (0.0-0.1) 04/24/24 18:13 Nucleated RBC % (auto) 0 % 04/24/24 18:13 Nucleated RBCs # 0.0 /100WBC 04/24/24 18:13 Sodium 139 mmol/L (136-145) 04/24/24 18:13 Potassium 3.7 mmol/L (3.5-5.1) 04/24/24 18:13 Chloride 103 mmol/L (98-107) 04/24/24 18:13 Carbon Dioxide 24 mmol/L (22-29) 04/24/24 18:13 Anion Gap 15.7 (5-19) 04/24/24 18:13 BUN 15 mg/dL (6-20) 04/24/24 18:13 Creatinine 1.0 mg/dL (0.7-1.2) 04/24/24 18:13 GFR Calculation 83.6 mL/min (90-130) L 04/24/24 18:13 Glucose 98 mg/dL (65-115) 04/24/24 18:13 Calculated Osmolality 289 mOsm/kg (285-295) 04/24/24 18:13 Calcium 9.3 mg/dL (8.5-10.5) 04/24/24 18:13 Total Bilirubin 0.2 mg/dL (0.15-1.2) 04/24/24 18:13 AST 29 U/L (0-40) 04/24/24 18:13 ALT 38 U/L (0-41) 04/24/24 18:13 Alkaline Phosphatase 114 U/L (40-130) 04/24/24 18:13 Total Protein 6.9 g/dL (6.6-8.7) 04/24/24 18:13 Albumin 4.2 g/dL (3.5-5.2) 04/24/24 18:13 Globulin 2.7 g/dL (1.3-4.6) 04/24/24 18:13 Lipase 29 U/L (13-60) 04/24/24 18:13 Urine Color [place] (Yellow) A 04/24/24 18:20 Urine Appearance Cloudy (CLEAR) A 04/24/24 18:20 Urine pH 6.5 (5-7) 04/24/24 18:20 Ur Specific [place] 1.016 (1.005-1.030) 04/24/24 18:20 Urine Protein 1+ (Negative) A 04/24/24 18:20 Urine Glucose (UA) Negative (Normal) 04/24/24 18:20 Urine Ketones Negative (Negative) 04/24/24 18:20 Urine Blood 3+ (Negative) A 04/24/24 18:20 Urine Nitrate Negative (Negative) 04/24/24 18:20 Urine Bilirubin Negative (Negative) 04/24/24 18:20 Urine Urobilinogen 1.0 mg/dL (Negative) 04/24/24 18:20 Ur Leukocyte Esterase Negative (Negative) 04/24/24 18:20 Urine RBC >100 /hpf (0-2) H 04/24/24 18:20 Urine WBC 0-5 /hpf (0-5) 04/24/24 18:20 Ur Squamous Epith Cells 0-5 /hpf (0-5) 04/24/24 18:20 Amorphous Sediment Not Reportable 04/24/24 18:20 Urine Bacteria None seen /hpf (NONE) 04/24/24 18:20 Hyaline Casts 0.81 /lpf 04/24/24 18:20 No radiology studies performed this visit Discharge Plan Discharge Patient Disposition: Home Clinical Impression: Renal colic on left side Condition: Stable Prescriptions: No Action hydrocodone-acetaminophen 5-325 mg tablet 1 tab PO Q8H PRN (Reason: pain) Qty: 10 0RF ondansetron 8 mg tablet,disintegrating 8 mg PO Q6H Qty: 14 0RF Rx Instructions: Take 1/2-1 tab every 6 hours as needed for nausea and vomiting Miralax 17 gram/dose powder 17 g PO DAILY Qty: 510 0RF Rx Instructions: Take 1 scoop daily while taking pain medications. cefdinir 300 mg capsule 300 mg PO BID 5 Days Qty: 10 0RF Discharge Orders: Discharge ED (Routine); Ordered 04/24/24 Ordered By: Josesito Lema Discharge Diet: As Directed Discharge Activity: Increase activity as tolerated Patient Instructions: Abdominal Pain (ED), Opioid Safety, Pain Management Activity Restrictions/Additional Instructions: Continue taking pain medications and nausea medications as prescribed. Continue follow-up with urology as discussed. Plenty of fluids. Return with any new or concerning symptoms. Coding Level of Care Code ED Medical Claims Examiner for Francisco Romero
[2024-04-24] MEDS: metoclopramide 5 mg/mL SDV 2 mL 10 MG IVP (18:06)
[2024-04-24] MEDS: sodium chloride 0.9% 1,000 ML 999 ML IV (18:06)
[2024-04-24] MEDS: HYDROcodone-acetaminophen 7.5-325 mg Tablet 1 TAB PO (18:06)
[2024-04-24 18:23] LABS: Basophils # 0.1 10^3/uL (0.0-0.1); Basophils % 1.2 %; Eosinophils # 0.2 10^3/uL (0.0-0.8); Eosinophils % 2.4 %; Hematocrit 35.5 % (37-53); Lymphocytes # 1.7 10^3/uL (0.8-4.8); Lymphocytes % 22.1 %; Mean Corpuscular HGB Conc 33.2 g/dL (30-55); Mean Corpuscular Hemoglobin 32.2 pg (27-33); Mean Corpuscular Volume 96.7 fl (82-101); Mean Platelet Volume 9.6 fL (7.4-10.4); Monocytes # 0.5 10^3/uL (0.2-0.9); Monocytes % 7.2 %; Neutrophils # 4.98 10^3/uL (1.8-7.7); Neutrophils % 66.8 %; Nucleated Red Blood Cells % 0 %; Platelet Count 235 10^3/cmm (157-399); Red Blood Count 3.67 10^6/uL (3.85-5.65); White Blood Count 7.46 10^3/uL (3.29-11.43)
[2024-04-24 18:42] LABS: Alanine Aminotransferase 38 U/L (0-41); Albumin Level 4.2 g/dL (3.5-5.2); Alkaline Phosphatase 114 U/L (40-130); Anion Gap 15.7 (5-19); Aspartate Amino Transferase 29 U/L (0-40); Blood Urea Nitrogen 15 mg/dL (6-20); Calcium 9.3 mg/dL (8.5-10.5); Carbon Dioxide 24 mmol/L (22-29); Chloride 103 mmol/L (98-107); Creatinine Clr Calc Pharmacy 128.9881; Globulin 2.7 g/dL (1.3-4.6); Glomerular Filtration Rate 83.6 mL/min (90-130); Glucose 98 mg/dL (65-115); Lipase 29 U/L (13-60); Osmolality Calculated 289 mOsm/kg (285-295); Potassium 3.7 mmol/L (3.5-5.1); Sodium 139 mmol/L (136-145); Total Bilirubin 0.2 mg/dL (0.15-1.2); Total Protein 6.9 g/dL (6.6-8.7)
[2024-04-24 18:48] LABS: Charge for UA Resulting for Rev
[2024-04-24 18:53] LABS: Bilirubin Urine Negative (Negative); Blood Urine 3+ (Negative); Glucose Urine UA Negative (Normal); Ketones Urine Negative (Negative); Leukocyte Esterase Urine Negative (Negative); Nitrate Urine Negative (Negative); Protein Urine 1+ (Negative); Specific Gravity, Urine 1.016 (1.005-1.030); Urine Appearance Cloudy (CLEAR); pH Urine 6.5 (5-7)
[2024-04-24 18:56] LABS: Bacteria Urine None Seen /hpf; Hyaline Casts Urine 0.81 /lpf; RBC Urine >100 /hpf (0-2); Squamous Epithelial Cell Urine 0-5 /hpf (0-5); WBC Urine 0-5 /hpf (0-5)
[2024-04-24 18:58] LABS: Urine Color Orange (Yellow)
[2024-04-24 18:59] LABS: Add Urine Culture? Yes
[2024-04-24 19:53] VITALS: RESP 18
[2024-04-24] MEDS: HYDROmorphone 1 mg/mL INJ 1 mL 0.4 MG IVP (19:53)
[2024-04-24] MEDS: ondansetron 2 mg/ML SDV 2 mL 4 MG IVP (19:55)
[2024-04-24 19:57] VITALS: BP 165/108
[2024-04-24 20:08] VITALS: BP 155/111; PULSE 90; O2SAT 94
--- NOTE | 2024-04-28 08:19 | PC.NURSE ---
Dr. Wallace notified of urine culture results. Pt urine report and visit note printed and given to
== END 2024-04-24 20:11 | disposition home or self-care (01) ==
PROVIDERS: Emergency Provider Physician Assistant
DX: N23 Unspecified renal colic (principal)
CPT/HCPCS: 36415; 80053; 81003; 81015; 83690; 85025; 87086; 87186; 96374; 96375; 99284; J1170; J2405; J2765; J7030

== ENCOUNTER 2024-05-06 09:46 | Emergency (ER) | payer SELFPAY ==
[2024-05-06 09:49] VITALS: BP 190/115; PULSE 83; RESP 17; TEMP 36.8; O2SAT 99; BMI 30.8
--- NOTE | 2024-05-06 10:02 | W.ED.NAVMDI ---
HPI - Nausea/Vomiting/Diarrhea General: Chief complaint: Nausea/Vomiting/Diarrhea Stated complaint: kidney stones, nausea, vomiting Time Seen by Provider: 05/06/24 09:51 History of Present Illness: 38-year-old male with history of kidney stones and chronic kidney problems and chronic renal colic who has been in the emergency room a few times in the past couple of weeks with renal colic. He has had 2 scans that both showed some irregularities at the end of the left ureter but no stones in the ureter and no obstruction. He is here working in is leaving tomorrow he says. He has planned follow-up with urology when he gets back home at some point in the near future. Today he presents with nausea vomiting and left kidney pain. No fevers. No chest pain. No shortness of breath. Altered mental status. No focal motor deficits. Related Data Previous Rx's Medication Instructions Recorded ondansetron 8 mg disintegrating 8 mg PO Q6H #14 tabs 04/21/24 tablet polyethylene glycol 3350 17 17 g PO DAILY #510 grams 04/21/24 gram/dose oral powder (Miralax) hydrocodone 5 mg-acetaminophen 325 1 tab PO Q8H PRN pain #10 tabs 04/23/24 mg tablet cephalexin 500 mg capsule 500 mg PO BID 5 days #10 caps 05/06/24 hydrocodone 5 mg-acetaminophen 325 1 tab PO Q8H PRN pain #14 tabs 05/06/24 mg tablet Allergies Allergy/AdvReac Type Severity Reaction Status Date / Time ketorolac [From Toradol] Allergy Unknown Verified 04/24/24 17:48 morphine Allergy ALGY-Hives Verified 04/24/24 17:48 NSAIDS (Non-Steroidal Allergy Unknown Verified 04/24/24 17:48 Anti-Inflamma Penicillins Allergy Unknown Verified 04/24/24 17:48 Sulfa (Sulfonamide Allergy ALGY-Hives Verified 04/24/24 17:48 Antibiotics) Review of Systems Narrative: Constitutional symptoms: Negative except as documented in HPI. Skin symptoms: Negative except as documented in HPI. Eye symptoms: Negative except as documented in HPI. ENMT symptoms: Negative except as documented in HPI. Respiratory symptoms: Negative except as documented in HPI. Cardiovascular symptoms: Negative except as documented in HPI. Gastrointestinal symptoms: Negative except as documented in HPI. Genitourinary symptoms: Negative except as documented in HPI. Musculoskeletal symptoms: Negative except as documented in HPI. Neurologic symptoms: Negative except as documented in HPI. Psychiatric symptoms: Negative except as documented in HPI. Endocrine symptoms: Negative except as documented in HPI. Physical Exam Narrative: EXAM NARRATIVE: General: Alert, no acute distress. Skin: Warm, dry. Head: Normocephalic, atraumatic. Neck: Supple, trachea midline. Eye: Extraocular movements are intact. Ears, nose, mouth and throat: mucosa moist. Cardiovascular: Regular, Normal peripheral perfusion. Respiratory: Lungs are clear to auscultation, respirations are non-labored, breath sounds are equal, Symmetrical chest wall expansion. Gastrointestinal: Soft, Nontender, Non distended Musculoskeletal: Normal ROM, no deformity. Neurological: Alert and oriented, No focal neurological deficit observed. Psychiatric: Cooperative, appropriate mood & affect. Course Vital Signs: Vital signs: Vital Signs Temperature 98.2 F 05/06/24 09:49 Pulse Rate 83 05/06/24 09:49 Respiratory Rate 17 05/06/24 12:00 Blood Pressure 190/115 05/06/24 09:49 Pulse Oximetry 98 05/06/24 12:00 MDM - Nausea/Vomiting/Diarrhea Medical Decision Making Medical decision making: Differential diagnosis including but not limited to and based on the above HPI, review of systems and physical exam: Ureterolithiasis. Urinary tract infection. Appendicitis. Cholecystis. Musculoskeletal / back pain. Pyelonephritis Orders placed to evaluate differential diagnosis based on the above differential, HPI and physical exam Lab Review: Laboratory results were reviewed and interpreted by myself the emergency room physician. No leukocytosis. No anemia. No renal failure. He does have hematuria again in his urine. He has chronic kidney issues. I reviewed the patient's medical record. CT scan below shows chronic kidney problems. This was similar to the study done a few days before. He has chronic kidney issues and chronic stones. There were some stones in the kidney but not appear large enough to at this point even if they have passed into the ureter to not be able to pass. He is already had 2 CT scans in the past few days I do not see any utility in rescanning him today as it will not change treatment. CT scan from 04/25/2024 COMPARISON: 10/16/2016, 04/21/2024 Lower thorax: There is subtle changes of groundglass attenuation at the LEFT lung base. Heart is normal size. Small hiatal hernia. Liver: Normal size liver. No mass or bile duct dilatation. Gallbladder: Normal gallbladder. No pericholecystic fluid or cholelithiasis. No gallbladder wall thickening. Pancreas: Normal size and attenuation. Normal pancreatic duct. No pancreatitis or mass. Spleen: Normal. Adrenal glands: Normal. No mass. Right kidney: Abnormal RIGHT kidney. There is marked diffuse cortical thinning with mild atrophy. Mildly prominent renal pelvis. No stones identified in the ureter. There are nonobstructing calcifications in the renal pelvis which are very tiny. Exophytic low-attenuation mass from the mid lateral kidney measures 3.6 x 2.5 cm. This mass was previously described in 2017 but is slightly greater in size. There are layering calcifications within this mass which is probably a complex cyst. Left kidney: Mildly enlarged kidney. There is mild dilatation of the renal pelvis and calyces. Nonobstructing calcifications are identified. Postoperative sutures are noted in. In the past patient had a staghorn calculus present. The LEFT ureter is very mildly prominent. Distally the ureter becomes irregular but there is no obstruction or stone identified. Aorta: Normal abdominal aorta, no aneurysm or atherosclerosis. No free fluid, intraperitoneal air or significant lymphadenopathy. GI tract: Normal noncontrast imaging of the stomach, small bowel and colon. No obstruction or wall thickening. Normal appendix. Abdominal wall: Small umbilical hernia contains fat only. Pelvis: No free fluid. No ascites. Normal urinary bladder. Osseous structures: Unremarkable. IMPRESSION: 1. Mild LEFT pelvocaliectasis with mild uroepithelial irregularity of the distal LEFT ureter. No stones are identified. Correlate for possible urinary tract infection or recently passed stone. Very similar to the study of 04/21/2024. 2. Chronic cortical thinning and atrophy RIGHT kidney with complex cysts. The cyst contains layering calcification. 3. Postsurgical changes lower pole LEFT kidney. Reexamination: Patient remained stable. No increased work of breathing. No altered mental status. No focal motor deficits. Assessment and plan: Renal colic ?Fluids, Dilaudid, oxycodone in the emergency room and Zofran. - Discharged home - Discussed findings and plan with patient. Answered any questions. - All laboratory values were reviewed and interpreted personally by myself, the ER physician - Evaluation and treatment of this problem were appropriate in the emergency setting Lab Data 05/06/24 10:55 05/06/24 10:55 Laboratory Results WBC 6.42 10^3/uL (3.29-11.43) 05/06/24 10:55 RBC 4.42 10^6/uL (3.85-5.65) 05/06/24 10:55 Hgb 14.10 g/dL (11.27-16.99) 05/06/24 10:55 Hct 41.7 % (37-53) 05/06/24 10:55 MCV 94.3 fl (82-101) 05/06/24 10:55 MCH 31.9 pg (27-33) 05/06/24 10:55 MCHC 33.8 g/dL (30-55) 05/06/24 10:55 RDW 12.9 % (12.1-15.1) 05/06/24 10:55 Plt Count 225 10^3/cmm (157-399) 05/06/24 10:55 MPV 9.3 fL (7.4-10.4) 05/06/24 10:55 Neut % (Auto) 72.1 % 05/06/24 10:55 Lymph % (Auto) 17.1 % 05/06/24 10:55 [place] % (Auto) 7.6 % 05/06/24 10:55 Eos % (Auto) 1.6 % 05/06/24 10:55 Baso % (Auto) 1.1 % 05/06/24 10:55 Neut # (Auto) 4.63 10^3/uL (1.8-7.7) 05/06/24 10:55 Lymph # (Auto) 1.1 10^3/uL (0.8-4.8) 05/06/24 10:55 [place] # (Auto) 0.5 10^3/uL (0.2-0.9) 05/06/24 10:55 Eos # (Auto) 0.1 10^3/uL (0.0-0.8) 05/06/24 10:55 Baso # (Auto) 0.1 10^3/uL (0.0-0.1) 05/06/24 10:55 Nucleated RBC % (auto) 0 % 05/06/24 10:55 Nucleated RBCs # 0.0 /100WBC 05/06/24 10:55 Sodium 140 mmol/L (136-145) 05/06/24 10:55 Potassium 4.2 mmol/L (3.5-5.1) 05/06/24 10:55 Chloride 104 mmol/L (98-107) 05/06/24 10:55 Carbon Dioxide 25 mmol/L (22-29) 05/06/24 10:55 Anion Gap 15.2 (5-19) 05/06/24 10:55 BUN 14 mg/dL (6-20) 05/06/24 10:55 Creatinine 1.0 mg/dL (0.7-1.2) 05/06/24 10:55 GFR Calculation 83.6 mL/min (90-130) L 05/06/24 10:55 Glucose 96 mg/dL (65-115) 05/06/24 10:55 Calculated Osmolality 290 mOsm/kg (285-295) 05/06/24 10:55 Calcium 9.3 mg/dL (8.5-10.5) 05/06/24 10:55 Total Bilirubin 0.4 mg/dL (0.15-1.2) 05/06/24 10:55 AST 35 U/L (0-40) 05/06/24 10:55 ALT 42 U/L (0-41) H 05/06/24 10:55 Alkaline Phosphatase 135 U/L (40-130) H 05/06/24 10:55 Total Protein 7.7 g/dL (6.6-8.7) 05/06/24 10:55 Albumin 4.4 g/dL (3.5-5.2) 05/06/24 10:55 Globulin 3.3 g/dL (1.3-4.6) 05/06/24 10:55 Urine Color [place] (Yellow) 05/06/24 11:34 Urine Appearance Cloudy (CLEAR) A 05/06/24 11:34 Urine pH 7.5 (5-7) 05/06/24 11:34 Ur Specific [place] 1.014 (1.005-1.030) 05/06/24 11:34 Urine Protein Trace (Negative) A 05/06/24 11:34 Urine Glucose (UA) Negative (Normal) 05/06/24 11:34 Urine Ketones Negative (Negative) 05/06/24 11:34 Urine Blood 3+ (Negative) A 05/06/24 11:34 Urine Nitrate Negative (Negative) 05/06/24 11:34 Urine Bilirubin Negative (Negative) 05/06/24 11:34 Urine Urobilinogen 1.0 mg/dL (Negative) 05/06/24 11:34 Ur Leukocyte Esterase Negative (Negative) 05/06/24 11:34 Urine RBC >100 /hpf (0-2) H 05/06/24 11:34 Urine WBC 0-5 /hpf (0-5) 05/06/24 11:34 Ur Squamous Epith Cells 0-5 /hpf (0-5) 05/06/24 11:34 Amorphous Sediment Not Reportable 05/06/24 11:34 Urine Bacteria None seen /hpf (NONE) 05/06/24 11:34 Hyaline Casts 0-4 /lpf H 05/06/24 11:34 No radiology studies performed this visit Discharge Plan Discharge Patient Disposition: Home Clinical Impression: Renal colic on left side Condition: Stable Prescriptions: New hydrocodone-acetaminophen 5-325 mg tablet 1 tab PO Q8H PRN (Reason: pain) Qty: 14 0RF Rx Instructions: Take 1/2 to 1 tab every 8 hours as needed for pain cephalexin 500 mg capsule 500 mg PO BID 5 Days Qty: 10 0RF No Action hydrocodone-acetaminophen 5-325 mg tablet 1 tab PO Q8H PRN (Reason: pain) Qty: 10 0RF ondansetron 8 mg tablet,disintegrating 8 mg PO Q6H Qty: 14 0RF Rx Instructions: Take 1/2-1 tab every 6 hours as needed for nausea and vomiting Miralax 17 gram/dose powder 17 g PO DAILY Qty: 510 0RF Rx Instructions: Take 1 scoop daily while taking pain medications. Discharge Orders: Discharge ED (Routine); Ordered 05/06/24 Ordered By: Nadiya Bass Discharge Diet: Usual diet Discharge Activity: Resume usual activity Patient Instructions: Abdominal Pain (ED), Opioid Safety, Pain Management Activity Restrictions/Additional Instructions: Thank you for choosing [facility] for your healthcare needs today. Please realize this is an emergency room and that we are providing you with a medical screening exam and this may not be complete and all inclusive of all the testing and or work up that you may need to determine your ailment or severity of your illness. You have been screened and evaluated and felt safe for discharge. Health conditions do change or evolve sometimes and as such it is important that you follow up with your Primary Doctor to be re checked, 3-5 days is a general good time frame for follow up. You are always welcome to return to the ED for re assessment if your symptoms are worsening or you have new concerns Coding Level of Care Code ED Industrial Welder for Francisco Romero
[2024-05-06] MEDS: sodium chloride 0.9% 1,000 ML 999 ML IV (11:06)
[2024-05-06 11:07] VITALS: RESP 17; O2SAT 98
[2024-05-06 11:07] LABS: Basophils # 0.1 10^3/uL (0.0-0.1); Basophils % 1.1 %; Eosinophils # 0.1 10^3/uL (0.0-0.8); Eosinophils % 1.6 %; Hematocrit 41.7 % (37-53); Lymphocytes # 1.1 10^3/uL (0.8-4.8); Lymphocytes % 17.1 %; Mean Corpuscular HGB Conc 33.8 g/dL (30-55); Mean Corpuscular Hemoglobin 31.9 pg (27-33); Mean Corpuscular Volume 94.3 fl (82-101); Mean Platelet Volume 9.3 fL (7.4-10.4); Monocytes # 0.5 10^3/uL (0.2-0.9); Monocytes % 7.6 %; Neutrophils # 4.63 10^3/uL (1.8-7.7); Neutrophils % 72.1 %; Nucleated Red Blood Cells % 0 %; Platelet Count 225 10^3/cmm (157-399); Red Blood Count 4.42 10^6/uL (3.85-5.65); Red Cell Distribution Width 12.9 % (12.1-15.1); White Blood Count 6.42 10^3/uL (3.29-11.43)
[2024-05-06] MEDS: HYDROmorphone 1 mg/mL INJ 1 mL IVP (11:07)
[2024-05-06] MEDS: ondansetron 2 mg/ML SDV 2 mL 8 MG IVP (11:07)
[2024-05-06 11:24] LABS: Alanine Aminotransferase 42 U/L (0-41); Albumin Level 4.4 g/dL (3.5-5.2); Alkaline Phosphatase 135 U/L (40-130); Anion Gap 15.2 (5-19); Aspartate Amino Transferase 35 U/L (0-40); Blood Urea Nitrogen 14 mg/dL (6-20); Calcium 9.3 mg/dL (8.5-10.5); Carbon Dioxide 25 mmol/L (22-29); Chloride 104 mmol/L (98-107); Creatinine Clr Calc Pharmacy 131.5585; Globulin 3.3 g/dL (1.3-4.6); Glomerular Filtration Rate 83.6 mL/min (90-130); Glucose 96 mg/dL (65-115); Osmolality Calculated 290 mOsm/kg (285-295); Potassium 4.2 mmol/L (3.5-5.1); Sodium 140 mmol/L (136-145); Total Bilirubin 0.4 mg/dL (0.15-1.2); Total Protein 7.7 g/dL (6.6-8.7)
[2024-05-06 11:40] LABS: Bilirubin Urine Negative (Negative); Blood Urine 3+ (Negative); Glucose Urine UA Negative (Normal); Ketones Urine Negative (Negative); Leukocyte Esterase Urine Negative (Negative); Nitrate Urine Negative (Negative); Protein Urine Trace (Negative); Specific Gravity, Urine 1.014 (1.005-1.030); Urine Appearance Cloudy (CLEAR); Urine Color Yellow (Yellow); pH Urine 7.5 (5-7)
[2024-05-06 11:45] LABS: Bacteria Urine None Seen /hpf; Hyaline Casts Urine 0-4 /lpf; RBC Urine >100 /hpf (0-2); Squamous Epithelial Cell Urine 0-5 /hpf (0-5); WBC Urine 0-5 /hpf (0-5)
[2024-05-06 12:00] VITALS: RESP 17; O2SAT 98
[2024-05-06] MEDS: oxyCODONE 5 mg IR Tab/Cap 10 MG PO (12:00)
[2024-05-06 12:33] VITALS: BP 168/98; PULSE 78; O2SAT 96
== END 2024-05-06 12:34 | disposition home or self-care (01) ==
PROVIDERS: Emergency Provider Emergency Medicine
DX: N23 Unspecified renal colic (principal)
CPT/HCPCS: 80053; 81001; 85025; 96361; 96374; 96375; 99284; J1170; J2405; J7030